=== PATIENT | female | born 2000 | race Caucasian/White ===

== ENCOUNTER 2023-09-18 11:16 | Emergency (ER) | payer SELFPAY ==
[~2023-09-18] VITALS: Ht 177.8 cm; Wt 108.6 kg
[2023-09-18 11:18] VITALS: TEMP 97.5
[2023-09-18 11:49] LABS: COLLECTION METHOD CLEAN CATCH
[2023-09-18 12:04] LABS: PH 5.5 (5.0-8.5); URINE APPEARANCE Clear (CLEAR/HAZY); URINE BLOOD Negative (NEGATIVE); URINE COLOR Yellow (YELLOW); URINE GLUCOSE TRACE (NEGATIVE); URINE KETONE TRACE (NEGATIVE); URINE NITRATE Negative (NEGATIVE); URINE PROTEIN(semi-quant) Negative (NEGATIVE); URINE UROBILINOGEN 0.2 E.U/dL (0.2-1.0)
[2023-09-18 12:05] LABS: URINE BACTERIA Rare /hpf (NONE SEEN); URINE RBC None Seen /hpf (0-2)
[2023-09-18 13:30] VITALS: BP 122/77; PULSE 88
== END 2023-09-18 13:56 | disposition home or self-care (01) ==
LOC: COL.ER 11:16
PROVIDERS: Emergency Medicine
DX: O9A.212 Injury, poisoning and certain other consequences of external causes complicating pregnancy, second trimester (principal); S16.1XXA Strain of muscle, fascia and tendon at neck level, initial encounter; R10.31 Right lower quadrant pain; R10.32 Left lower quadrant pain; Z3A.14 14 weeks gestation of pregnancy; V49.40XA Driver injured in collision with unspecified motor vehicles in traffic accident, initial encounter; Y92.410 Unspecified street and highway as the place of occurrence of the external cause